=== PATIENT | female | born 1935 | race Caucasian/White ===

== ENCOUNTER 2019-07-03 16:08 | Emergency (ER) | payer MEDICARE, MEDICAID ==
[~2019-07-03] VITALS: Ht 170.2 cm; Wt 79.5 kg
[~2019-07-03 16:08] MED LIST: CAT3P TD; METH2.5T PO
--- NOTE | 2019-07-03 16:20 | NUR ---
PT PLACED IN ER 17 TO WAIT FOR A MAIN ER ROOM. SPOKE WITH YANDY MARQUEZ WHO RECOMMENDED PT SIPPING ON SOME COKE TO HELP WITH DESOLVING THE POTATO AND SWALLOWING AND ORDERED ATIVAN 0.5MG IM. PT HAS REFUSED THE COKE STATING THE CARBINATION PERVENTS HER FROM SWALLOWING, BUT WELCOMED THE IM ATIVAN.
[2019-07-03] MEDS ORDERED: LORazepam 2 mg/ml vial IM ONE (16:25)
[2019-07-03 17:16] LABS: BASOPHILS % (AUTO) 0.8 % (0-1); EOSINOPHILS # (AUTO) 0.2 X10'3 (0-0.9); EOSINOPHILS % (AUTO) 3.2 % (0-6); HEMATOCRIT 44.6 % (35.0-45.0); HEMOGLOBIN 14.9 g/dl (12.0-16.0); LYMPHOCYTES # (AUTO) 2.3 X10'3 (1.1-4.8); LYMPHOCYTES % (AUTO) 43.8 % (21-51); MEAN CORPUSCULAR HEMOGLOBIN 31.5 PG (27.0-31.0); MEAN CORPUSCULAR HGB CONC 33.5 g/dL (33.0-36.5); MEAN CORPUSCULAR VOLUME 94.1 FL (78-98); MEAN PLATELET VOLUME 8.2 FL (7.4-10.4); MONOCYTES # (AUTO) 0.2 X10'3 (0-0.9); MONOCYTES % (AUTO) 3.8 % (2-12); NEUTROPHILS # (AUTO) 2.6 X10'3 (1.8-7.7); NEUTROPHILS % (AUTO) 48.4 % (42-75); PLATELET COUNT 173 X10'3 (140-440); RED BLOOD COUNT 4.74 X10'6 (4.20-5.60); RED CELL DISTRIBUTION WIDTH 14.5 % (11.5-14.5); WHITE BLOOD COUNT 5.3 X10'3 (4.5-11.0)
[2019-07-03 17:24] VITALS: BP 177/100
--- NOTE | 2019-07-03 17:28 | NUR ---
PT WAS IN BED 17, PLACED IV PT NEEDS TO GO TO GI LAB, SARAH FROM GI LAB TRANSPORTING PT TO GI LAB NOW VIA WHEELCHAIR, WILL COORDINATE DISCHARGE FROM GI LAB WHEN PROCEDURE IS COMPLETE
[2019-07-03 17:29] LABS: ALANINE AMINOTRANSFERASE 31 U/L (12-78); ALBUMIN 3.7 G/DL (3.4-5.0); ALBUMIN/GLOBULIN RATIO 1.1 (1.1-1.5); ALKALINE PHOSPHATASE 50 IU/L (46-116); ANION GAP 3 (8-16); ASPARTATE AMINO TRANSFERASE 35 U/L (10-37); BILIRUBIN,TOTAL 1.3 MG/DL (0.1-1.0); BLOOD UREA NITROGEN 21 MG/DL (7-18); BUN/CREATININE RATIO 15.6 (6.6-38.0); CALCIUM 9.9 MG/DL (8.5-10.1); CHLORIDE 109 MMOL/L (99-107); CREATININE 1.35 MG/DL (0.40-0.90); GLUCOSE 91 MG/DL (70-104); SODIUM 143 MMOL/L (135-145); TOTAL PROTEIN 7.2 G/DL (6.4-8.2); eGFR 37 ML/MIN
[2019-07-03] MEDS ORDERED: fentaNYL/PF 50MCG/1 ML 2ML syringe ONE ×2 (17:36→18:19)
[2019-07-03] MEDS ORDERED: LIDOcaine Viscous 15ml cup ONE (17:36)
[2019-07-03] MEDS ORDERED: MIDAZolam 5mg/5ml vial ONE ×2 (17:36→18:19)
[2019-07-03 18:37] VITALS: BP 145/86
[2019-07-03 18:47] VITALS: BP 148/66
[2019-07-03 18:57] VITALS: BP 134/87
[2019-07-03 19:07] VITALS: BP 140/60
--- NOTE | 2019-07-03 19:30 | NUR ---
Patient received from GI lab at this time, report received from DERRICK Platt. Patient arrived via wheelchair, awake, no signs of distress noted, at bedside. Patient able to transfer from wheelchair to [facility] with minimal assistance, hob elevated to 90 degrees. Patient denies numbness to throat, but admits to soreness without qualitative pain on pain scale.
--- NOTE | 2019-07-03 19:43 | NUR ---
Patient took sip of apple juice at this time with straw, HOB 90 degrees, mild swallowing delay noted, no signs of cough or choking. Patient to wait a few more minutes to attempt to swallow again. Addendum: 07/03/19 at 1950 by RABIA Patient denies throat numbness but states it still feels "tight" in her throat.
--- NOTE | 2019-07-03 20:05 | NUR ---
Patient given another sip of apple juice, HOB elevated 90 degrees, patient awake, alert, mild swallow delay noted with no coughing or choking present, patient states "its able to go down".
--- NOTE | 2019-07-03 20:35 | NUR ---
CINDER PIT WORKER Gary at bedside to assess patient. Patient continues to experience swallow delay but able to pass juice, states she feels sore, no choking or signs of coughing present. Per CINDER PIT WORKER continue to observe patient for another 30 min.
--- NOTE | 2019-07-03 21:07 | NUR ---
PULMONARY SPECIALIST Gary in to assess pateint a this time. Patient continues to experience swallow delay with water, PULMONARY SPECIALIST to consult with Dr Seals, patient awake, alert, sitting up in bed, no signs of distress noted, no cough, no choking while drinking observed.
[2019-07-03 21:38] VITALS: BP 154/77
== END 2019-07-03 21:39 | disposition home or self-care (01) ==
LOC: ER 16:09
DX: T18.128A Food in esophagus causing other injury, initial encounter (principal); R79.1 Abnormal coagulation profile; Z90.710 Acquired absence of both cervix and uterus; Z90.89 Acquired absence of other organs; Z88.5 Allergy status to narcotic agent; Z79.899 Other long term (current) drug therapy; X58.XXXA Exposure to other specified factors, initial encounter; Y93.89 Activity, other specified; Y92.89 Other specified places as the place of occurrence of the external cause; Y99.8 Other external cause status
CPT/HCPCS: 36415; 43248; 80053; 85025; 85610; 96372; 99152; 99153; 99285; J2060; J2250; J3010; J7040; A4620

== ENCOUNTER 2020-04-23 00:03 | Emergency (ER) | payer MEDICARE, MEDICAID ==
[~2020-04-23] VITALS: Ht 170.2 cm; Wt 69.0 kg
--- NOTE | 2020-04-23 00:50 | NUR ---
DR VIVAR ON PHONE WITH CERI DAUGHTER, DAUGHTER REPORTS PATIETN UNABLE TO HAVE RADIATION BEFORE ALL TEETH ARE EXTRACTED AND THEY WERE IN THE PROCESS OF THAT.
[2020-04-23] MEDS ORDERED: ketorolac trometh. 30mg/ml inj. IV ONE (01:10)
[2020-04-23] MEDS ORDERED: morphine 2 MG/ML inj. syringe IV ONE (01:10)
[2020-04-23] MEDS ORDERED: IBUP100O20 PO (01:14)
[2020-04-23] MEDS ORDERED: ACET160S PO (01:14)
--- NOTE | 2020-04-23 01:28 | NUR ---
SPOUSE AT BEDSIDE DR VIVAR SPEAKING WITH
[2020-04-23 02:29] VITALS: BP 158/96
--- NOTE | 2020-04-23 02:30 | NUR ---
PATIENT DEPARTED URINARY CATHETER PATENT AND INTACT. PEG INTACT. VSS PATIENT AGREES WITH DC HOME
== END 2020-04-23 02:31 | disposition home or self-care (01) ==
LOC: ER 00:04
DX: R07.0 Pain in throat (principal); C15.9 Malignant neoplasm of esophagus, unspecified; J02.9 Acute pharyngitis, unspecified; Z85.01 Personal history of malignant neoplasm of esophagus; Z90.710 Acquired absence of both cervix and uterus; Z90.89 Acquired absence of other organs; Z88.5 Allergy status to narcotic agent; Z79.899 Other long term (current) drug therapy
CPT/HCPCS: 96374; 96375; 99284; J1885; J2270